=== PATIENT | male | born 1950 | race Caucasian/White ===

== ENCOUNTER 2017-08-23 11:25 | Outpatient (RCR) | payer MEDICARE, BC ==
[2017-07-02 12:09] LABS: PLATELET COUNT, AUTOMATED 74 K/uL (150-450)
[2017-07-06 12:19] LABS: PLATELET COUNT, AUTOMATED 200 K/uL (150-450)
[2017-07-06 12:53] VITALS: BP 105/63
[2017-07-14 13:04] LABS: PLATELET COUNT, AUTOMATED 264 K/uL (150-450)
[2017-07-14 15:45] VITALS: BP 141/80
[2017-07-16 10:37] VITALS: BP 107/69
[2017-07-16 10:41] LABS: PLATELET COUNT, AUTOMATED 182 K/uL (150-450)
[2017-07-19 11:08] VITALS: BP 115/75
[2017-07-19 11:16] LABS: PLATELET COUNT, AUTOMATED 64 K/uL (150-450)
--- NOTE | 2017-07-21 07:24 | ONCOLOGY FOLLOW UP NOTE ---
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 HISTORY OF PRESENT ILLNESS Scott returns. I am sharing his care with Dr. Shaffer, Dr. Keating, Dr. Stewart and Dr. Rojas. He has received all six cycles of R-EPOCH in [place] as an inpatient due to the high risk BCL6 mutation. This is not double hit lymphoma as he does have a c-Myc mutation. Thus I do not believe he requires autologous stem cell transplant if he has complete response as consolidation. He is aware that we would utilize transplant in the future if he relapses. I was very pleased with his interim PET scan, and we are getting an end-of- treatment PET scan in approximately one month. Overall he is tolerating it well including control of the nausea. He does have side effects from the Neulasta, but does have profound myelosuppression from his treatment. He developed some oral ulcers again with this cycle, and I have resumed the acyclovir five times a day with twice daily prophylaxis after that time. We are also resuming Levaquin today for his profoundly low white blood cell count. Overall he is doing well and he is anxious to get his PET scan next month. ONCOLOGY HISTORY 1. Diffuse large B cell lymphoma. a. Initial presentation and summary of 2015 to early 2016 with fatigue and malaise. b. February 11, 2017: Bone marrow biopsy and aspirate was reportedly normal. c. An MRI of the spine is reportedly ordered, showing multiple bony lesions consistent with metastatic disease. d. March 03, 2017, CT PET: Extensive metastatic disease, although primary site was not clearly identified. There was extensive bony metastatic disease in the visualized axial and appendicular skeleton. There was metastatic mediastinal and retroperitoneal lymphadenopathy, as well as extensive hepatic metastatic disease to both lobes of the liver. e. March 03, 2017: Patient undergoes ultrasound-guided biopsy of left liver lesion. Pathology reveals diffuse large B cell lymphoma, germinal center B cell like. Tissue unfortunately was not sufficient for additional testing. Subsequent FISH testing revealed no evidence of 14; 18 translocation, no evidence of 8; 14 translocation, and no evidence of MYC rearrangement or amplification. BCL6 rearrangement warm and dry detected, however. There was no evidence of "double or triple hit" lymphoma. f. March 24, 2017: Lumbar puncture is performed. Pathology revealed benign cerebrospinal fluid. g. March 23, 2017: Patient electively admitted to [facility] to initiate R-EPOCH chemotherapy with intrathecal chemotherapy. PAST MEDICAL HISTORY 1. Diffuse large B cell lymphoma, as above. 2. Osteopenia/osteoporosis. 3. Gastroesophageal reflux disease with Espinal's esophagus. 4. History of basal cell carcinoma of right neck status post excision. 5. History of nephrolithiasis. 6. Reported secondary hypertension. CURRENT MEDICATIONS 1. Vitamin C. 2. Senna p.r.n. 3. Metamucil p.r.n. 4. Compazine p.r.n. 5. Potassium 20 mEq orally daily. 6. Ativan p.r.n. 7. Colace p.r.n. 8. Dexilant 60 mg orally daily. 9. Allopurinol. 10. Acyclovir. 11. Bactrim. 12. Hydrocodone/acetaminophen p.r.n. 13. Fentanyl patch 12 mcg q.3 days. 14. Ibuprofen has been discontinued. 15. Escitalopram 10 mg p.o. daily. 16. Vitamin D3. ALLERGIES Include IODINE CONTRAST. SOCIAL HISTORY The patient is a never smoker. He previously had drank about a can of beer a day, but this has been minimal since initiating treatment. There is no history of illicit drug use. FAMILY HISTORY Includes myocardial infarction and alcohol abuse in his father. Diabetes and hypertension as well as colon cancer in his mother. Hyperlipidemia and hypertension in his sister. Esophageal cancer in his paternal grandfather. Breast cancer in his maternal aunt. REVIEW OF SYSTEMS CONSTITUTIONAL: Positive fatigue due to chemo. No fevers, chills, signs of infection. HEENT: No headache, vision gallstone. CARDIOVASCULAR: No chest pain, dyspnea on exertion, edema, palpitations. RESPIRATORY: No shortness of breath, wheeze, cough. GASTROINTESTINAL: Some nausea, but had not been taking the Compazine. He is now doing this. No hematochezia or melena. He does have occasional cramping. GENITOURINARY: No dysuria or hematuria. ENDOCRINE: No heat or cold intolerance. PSYCHIATRIC: No anxiety or depression. SKIN: No concerning bruising or bleeding. He did have a rash previously, but none currently. MUSCULOSKELETAL: Chronic pain and rib pain related to the Neulasta, but also the lymphoma. HEMATOLOGICAL: No bruising, bleeding. Remainder of review of systems otherwise negative. PHYSICAL EXAMINATION VITAL SIGNS: Blood pressure 113/73, pulse 75, respiratory rate 16, temperature 100 Fahrenheit, but this was using the forehead device and he was wearing a winter hat at the time. Subsequently checked and normal. Oxygen saturation 92 % on room air. Pain 3/10, fatigue 3/10. Weight 70.9 kg. GENERAL: In stable condition, resting comfortably in the chair. CARDIOVASCULAR: Regular rate and rhythm. LUNGS: Clear. HEENT: He has a sore that I see on the posterior mouth and we are increasing his acyclovir. ABDOMEN: Soft, nontender, nondistended. No organomegaly or masses. EXTREMITIES: No clubbing, cyanosis or edema. SKIN: The rash near the port has improved with the moisturizing cream, but now he has the rash on his hands. I would like him to try the moisturizing cream alone as the skin appears quite dry. No other issues on physical exam, and full physical exam deferred to amount of time spent in counseling and coordination of care. IMPRESSION AND PLAN Patient is a pleasant 67-year-old gentleman with the followin. Stage IV diffuse large B cell lymphoma with a BCL6 mutation. He is in the middle of his last cycle six of R-EPOCH. 2. Anxiety related to number one. Provided reassurance today. 3. Myelosuppression due to treatment of number one. We will utilize acyclovir and Levaquin as well as the Neulasta that he received. I answered all of his questions. We will get a PET scan next month and see him at that time in [place]. Billing: Return visit level 5. Total time 45 minutes, counseling time 30. MTDD
[2017-07-23 11:50] VITALS: BP 99/87
[2017-07-23 12:22] LABS: PLATELET COUNT, AUTOMATED 44 K/uL (150-450)
[2017-07-27 11:51] LABS: PLATELET COUNT, AUTOMATED 187 K/uL (150-450)
[2017-07-30 11:34] VITALS: BP 112/68
[2017-07-30 11:47] LABS: PLATELET COUNT, AUTOMATED 280 K/uL (150-450)
[2017-08-03 11:42] LABS: PLATELET COUNT, AUTOMATED 322 K/uL (150-450)
[2017-08-03 12:36] VITALS: BP 112/68
[2017-08-04 14:10] VITALS: BP 96/72
[2017-08-04 15:33] VITALS: BP 107/60
[2017-08-10 11:51] LABS: PLATELET COUNT, AUTOMATED 201 K/uL (150-450)
[2017-08-10 17:11] VITALS: BP 114/70
[~2017-08-23] VITALS: Ht 188 cm; Wt 70.9 kg
[~2017-08-23 11:25] MED LIST: ACYC-50 PO; ALEN70TA2 PO; ALLO-119 PO; ALTEPLASE RECOMB 2 MG VIAL IVP PRN; ASCO-182 PO; ASPI-1471 PO; CHOL100052 PO; DEXL60CA6 PO; DEXTROSE 5%(*) 100 ML BAG 100 ML IVPB PRN; DOCU-416 PO; ESCI10TA8 PO; FENT1PAT40 TD; HEPARIN FLSH (PORT) 500 UN/5ML IVP PRN; IBUP800T37 PO; INFLUENZA VIRUS VAC 0.5 ML SYR IM ONLY ONE; LEVO500T83 PO; LIDOCAINE/SOD BICARB 8.4% SYR ID PRN; LOR5/325 PO; LORA-629 PO; LORA-630 PO; LORA-802 PO; MAGNESIUM SUL* 2 GM/50 ML IVPB 50 ML IVPB ONE; NS(*) 0.9% 100 ML BAG 100 ML IVPB PRN; NS(*) 0.9% 500 ML BAG 500 ML IV PRN; ONDA8TAB98 PO; OXYC-865 PO; PANT40TA65 PO; PEGFILGRASTIM 6 MG/0.6 ML SYR SUBQ ONE; POTA20TA94 PO; PROC10TA95 PO; PSYL3.4P2 PO; SENN8.6T34 PO; SULF-198 PO; TRIA15CR40 TP; VALA500T66 PO; WATER STERILE 10 ML VIAL IVP PRN
[2017-08-23 11:45] VITALS: BP 111/66
--- NOTE | 2017-08-23 13:40 | ONC Progress Note - NP.Halsey ---
Patient History Date of Service Aug 23, 2017 Reason For Visit/HPI Patient is seen in the clinic today for management of possible withdrawal symptoms from previous use of fentanyl patch. Patient has completed 6 cycles of R-EPOCH for high risk diffuse large B-cell lymphoma with BCL 6 mutation approximately 1 month ago. Patient reports that he had a recent PET/CT scan which was unremarkable. Patient feels that he is having no evidence of pain and chooses to stop his fentanyl patch 25 g which he is used since January 2016. Patient reports that he stop the fentanyl patch Wednesday evening and did not sleep much Wednesday night or Wednesday night. He feels faint and jittery, shaking legs, he's had diarrhea 1 episode yesterday however this is resolved today. He feels anxious despite having a very anxious personality. He denies nausea or vomiting. He has not tried to take Ativan or Condon which she has at home. In thorough discussion patient really is afraid to try Ativan due to its property of also be an addicting, however he will try Condon despite not having any pain to help wean off of the narcotics. Patient did get on the Internet and research side effects of withdrawal. He is aware that symptoms can occur but none of them are life threatening however he feels uncomfortable. In addition patient shares that he had a PSA lab draw completed recently which was elevated at 6.4. Previous PSA in November was 1.8. Patient has increased anxiety regarding the acute increase and is following with urology in September. It was explained to him by Dr. Garcia and by myself that this is possible that it's an inflammatory response status post chemotherapy and that a PSA would need to be repeated for better accuracy. Problem List (1) B-cell lymphoma (2) Anxiety (3) Body aches Oncology History 1. Diffuse large B cell lymphoma. a. Initial presentation and summary of 2015 to early 2016 with fatigue and malaise. b. February 11, 2017: Bone marrow biopsy and aspirate was reportedly normal. c. An MRI of the spine is reportedly ordered, showing multiple bony lesions consistent with metastatic disease. d. March 03, 2017, CT PET: Extensive metastatic disease, although primary site was not clearly identified. There was extensive bony metastatic disease in the visualized axial and appendicular skeleton. There was metastatic mediastinal and retroperitoneal lymphadenopathy, as well as extensive hepatic metastatic disease to both lobes of the liver. e. March 03, 2017: Patient undergoes ultrasound-guided biopsy of left liver lesion. Pathology reveals diffuse large B cell lymphoma, germinal center B cell like. Tissue unfortunately was not sufficient for additional testing. Subsequent FISH testing revealed no evidence of 14; 18 translocation, no evidence of 8; 14 translocation, and no evidence of MYC rearrangement or amplification. BCL6 rearrangement warm and dry detected, however. There was no evidence of "double or triple hit" lymphoma. f. March 24, 2017: Lumbar puncture is performed. Pathology revealed benign cerebrospinal fluid. g. March 23, 2017: Patient electively admitted to [facility] to initiate R-EPOCH chemotherapy with intrathecal chemotherapy. h. Completion of 6 cycles of chemotherapy on 2016. Patient reports PET/ CT scan one month out from treatment showed no evidence of disease i. 08/22/2017 patient is discontinuing fentanyl 25 g patch and reports withdrawal symptoms. Medical History Family History: FH: HI (myocardial infarction) FATHER, , Age:68 FH: dementia MOTHER, , Age:73 FH: diabetes mellitus MOTHER, , Age:73 FH: glaucoma MOTHER, , Age:73 FH: hypertension BROTHER OR SISTER Psychosocial History Social History The patient is a never smoker. He previously had drank about a can of beer a day, but this has been minimal since initiating treatment. There is no history of illicit drug use. Smoking History: No Smoking Status: Never Smoker Medications and Allergies Active Scripts Levofloxacin 500 Mg Tab (LEVOFLOXACIN 500 MG TAB) 500 Mg Tablet, 500 MG PO DAILY , #7 TAB 1 Refill Prov:JESIKA DONIS MD 07/19/17 Acyclovir (ACYCLOVIR) 400 Mg Tablet, 400 MG PO BID, #90 TAB Take 5 times a day for 1 week, then 2 times daily for 3 weeks, then stop. Prov:JESIKA DONIS MD 07/19/17 Valacyclovir Hcl (VALTREX) 500 Mg Tablet, 500 MG PO BID, #14 TAB 0 Refills Prov:JESIKA DONIS MD 06/28/17 Triamcinolone Acetonide 0.1% Cr 15 Gm Tube (TRIAMCINOLONE ACETONIDE 0.1% CREAM) 15 Gm Cream..g., 1 CARO TP DAILY for rash, #1 TUBE 1 Refill Apply to affected rash. Use sparingly on face. Prov:JESIKA DONIS MD 05/19/17 Escitalopram Oxalate (ESCITALOPRAM OXALATE) 10 Mg Tablet, 10 MG PO QDAY, #90 TAB 4 Refills Prov:RASHI WELLS MD 05/05/17 Reported Medications Loratadine (LORATADINE) 10 Mg Tablet, 10 MG PO DAILY 06/07/17 Ascorbic Acid (VITAMIN C) 500 Mg Tablet, 500 MG PO QDAY, TAB 04/25/17 Sennosides (SENNA) 8.6 Mg Tablet, 8.6 MG PO BID 04/25/17 Psyllium Husk/Aspartame (METAMUCIL FIBER SINGLES PACKET) 3.4 Gm Powd.pack, 3.4 GM PO QDAY 04/25/17 Prochlorperazine Maleate (PROCHLORPERAZINE MALEATE) 10 Mg Tablet, 10 MG PO Q8H Y for NAUSEA, TAB 04/25/17 Potassium Chloride (POTASSIUM CHLORIDE) 20 Meq Tab.er.prt, 20 MEQ PO QDAY 04/25/17 Lorazepam (LORAZEPAM) 0.5 Mg Tablet, 0.5-1 MG PO Q6H 04/25/17 Docusate Sodium (COLACE) 100 Mg Capsule, 100 MG PO BID, CAPSULE 04/25/17 Dexlansoprazole (DEXILANT) 60 Mg Cap.mp, 60 MG PO QDAY 04/25/17 Sulfamethoxazole/Trimet 800-160 Mg Tab (BACTRIM DS TABLET) 1 Each Tablet, 160 MG PO TID, TAB 04/25/17 Hydrocodone Bit/Acetaminophen (HYDROCODON-ACETAMINOPHEN 5-325) 1 Each Tablet, 1- 2 EACH PO Q4-6H, TAB 04/25/17 Cholecalciferol (Vitamin D3) (VITAMIN D) 1,000 Unit Tablet, 1 TAB PO QDAY 11/18/16 Discontinued Scripts Fentanyl (Fentanyl) 1 Each Patch.td72, 25 MCG TD Q72H for PAIN for 30 Days, #10 MCG Prov:[employer] [employer] DIRECTOR-BC, ONC 07/26/17 Allergies: Uncoded Allergies: iodine contrast (Allergy, Mild, RASH AT IV SITE, 02/10/17) Review of System/Physical Exam Review of Systems All Systems Reviewed/Normal: Yes, Except as Noted Gastrointestinal: Diarrhea (yesterday this is resolved today) Hematologic: Positive for Fatigue Musculoskeletal: Positive for Other (shaking of the legs) Neurologic: Other (feeling jittery and increased anxiety) Psychiatric: Anxiety (acutely increased over the last day) Physical Exam Vital Signs Temperature: 98.6 Pulse: 66 BP Systolic: 111 BP Diastolic: 66 Respiratory Rate: 16 O2 SAT: 92 O2 Delivery: Height (inches) 74.00 Weight lb: 165 Weight oz: Weight Kg (Gabo): Pain: 0 ECOG Score: 1 General: Stable, Well Developed, Well Nourished, Not In Acute Distress Psychiatric: Mood appears normal (patient appears to have a anxious personality and reports that he is feeling more anxious than usual) Diagnostic Studies Diagnostic Studies Laboratory Laboratory Tests 08/10/17 11:45 Laboratory Tests 07/06/17 12:05: Promyelocytes % 0, Blast Cells % 0 07/19/17 10:50: Polychromasia 1+, Hypochromasia 2+, Microcytosis 1+, Tear Drop Cells 2+, Helmet Cells 2+, [place] Cells 2+ 07/23/17 11:40: Anisocytosis 1+, Macrocytosis 1+ 07/27/17 11:30: Metamyelocytes % 1, Myelocytes % 1 07/30/17 11:38: Peripheral Blood Smear No 08/03/17 11:36: Neutrophils (%) (Auto) 77.3, Lymphocytes (%) (Auto) 7.0, Monocytes (%) (Auto) 14.6, Eosinophils (%) (Auto) 0.1, Basophils (%) (Auto) 1.0, Nucleated RBC Relative Count (auto) 0.0, Neutrophils # (Auto) 3.5, Lymphocytes # (Auto) 0.3, Monocytes # (Auto) 0.7, Eosinophils # (Auto) 0.0, Basophils # (Auto) 0.0, Nucleated RBC Absolute Count (auto) 0.00 08/10/17 11:45: White Blood Count 5.1, Red Blood Count 3.26, Hemoglobin 11.0, Hematocrit 32.5, Mean Corpuscular Volume 99.7, Mean Corpuscular Hemoglobin 33.8, Mean Corpuscular Hemoglobin Concent 33.9, Red Cell Distribution Width 16.1, Platelet Count 201, Mean Platelet Volume 9.1, Neutrophils % (Manual) 78, Band Neutrophils % 1, Lymphocytes % (Manual) 8, Atypical Lymphocytes % 2, Monocytes % (Manual) 11, Eosinophils % (Manual) 0, Basophils % (Manual) 0, Sodium Level 141, Potassium Level 4.2, Chloride Level 108, Carbon Dioxide Level 25, Blood Urea Nitrogen 13, Creatinine 0.60, Glomerular Filtration Rate Calc > 60.0, Random Glucose 101, Calcium Level 8.6, Magnesium Level 1.6, Total Bilirubin 0.7 , Aspartate Amino Transf (AST/SGOT) 29, Alanine Aminotransferase (ALT/SGPT) 32, Alkaline Phosphatase 66, Total Protein 6.0, Albumin 3.4 Assessment and Plan Assessment & Plan Patient is a pleasant 67-year-old gentleman with the followin. Stage IV diffuse large B cell lymphoma with a BCL6 mutation. He has completed six of R-EPOCH. PET/CT scan one month post completion is reported to be without evidence of disease. He will follow with Dr. Garcia as previously scheduled. 2. Anxiety related diagnosis of diffuse large B-cell lymphoma, elevated PSA of 6.4 from previous 1.8 in November, and discontinuing fentanyl patch. 3. Myelosuppression due to treatment of number. Patient has recovered, we'll continue to monitor 4. Discontinuing fentanyl patch and experiencing side effects such as not able to sleep, increased anxiety, jitteriness and diarrhea yesterday. Patient is without any evidence of pain. He has lorazepam at home which he refuses to use because it is also addicting. He also has Condon at home. We discussed trying to taper off of the fentanyl using a 12 g patches for a week and then discontinuing. Patient does not want to do so. We also discussed the use of Condon at night prior to bed for 3 or 4 days at 5/325 mg dose and then cutting it in half for 3 or 4 days and see how patient does this would allow a taper off of the narcotics. Patient is willing to do this and will call the clinic if it is not working. In addition I have suggested the use of melatonin to use in the future which is not habit-forming. He agrees to this plan of care. 5. Elevated PSA level. In November PSA was 1.8 and currently PSA is 6.4. This is thought to be related to inflammation post chemotherapy rather than prostate cancer. Patient has been referred to urology and has an appointment in September. We did discuss repeating a PSA level to rule out lab error and for better evaluation. Patient is agreeing to this and will discuss this with urology. I personally spent a total of 20 minutes [id number] with patient reviewing medications and plan of care. Physical exam was deferred today to allow conversation. See my note above for details. [employer] DIRECTOR-BC, ONC Aug 23, 2017 13:40
[2017-08-24] MEDS ORDERED: LOR5/325 PO (13:30)
== END 2017-09-30 ==
LOC: ONC 11:25
PROVIDERS: ATTEND Internal Medicine
DX: Z85.72 Personal history of non-Hodgkin lymphomas (principal); R70.0 Elevated erythrocyte sedimentation rate; Z79.899 Other long term (current) drug therapy; Z23 Encounter for immunization; R97.20 Elevated prostate specific antigen [PSA]; Z92.21 Personal history of antineoplastic chemotherapy; F41.9 Anxiety disorder, unspecified
CPT/HCPCS: 36415; 83735; 85007; 85025; 85027; 96365; 96372; G0008; G0463; J2505; J3475; Q2037; 82040; 82247; 82310; 82374; 82435; 82565; 82947; 84075; 84132; 84155; 84295; 84450; 84460; 84520; 90674; 99212

== ENCOUNTER 2017-10-25 08:00 | Outpatient (RCR) | payer MEDICARE, BC ==
[~2017-10-25] VITALS: Ht 188 cm; Wt 76.1 kg
[~2017-10-25 08:00] MED LIST changes: -ALTEPLASE RECOMB 2 MG VIAL IVP PRN; -DEXTROSE 5%(*) 100 ML BAG 100 ML IVPB PRN; -HEPARIN FLSH (PORT) 500 UN/5ML IVP PRN; -INFLUENZA VIRUS VAC 0.5 ML SYR IM ONLY ONE; -LIDOCAINE/SOD BICARB 8.4% SYR ID PRN; -MAGNESIUM SUL* 2 GM/50 ML IVPB 50 ML IVPB ONE; -NS(*) 0.9% 100 ML BAG 100 ML IVPB PRN; -NS(*) 0.9% 500 ML BAG 500 ML IV PRN; -PEGFILGRASTIM 6 MG/0.6 ML SYR SUBQ ONE; +PROC-5 PO; -PROC10TA95 PO; -WATER STERILE 10 ML VIAL IVP PRN
[2017-10-25 08:16] VITALS: BP 138/77
[2017-10-25 09:35] LABS: PLATELET COUNT, AUTOMATED 126 K/uL (150-450)
--- NOTE | 2017-10-26 17:43 | ONCOLOGY FOLLOW UP NOTE ---
EVENT DATE: October 25, 2017 CHIEF COMPLAINT/REASON FOR VISIT Mr. Justin is a pleasant 67-year-old gentleman in survivorship for diffuse large B cell lymphoma with high risk features including a BCL6 mutation, status post six cycles of dose adjusted R-EPOCH. HISTORY OF PRESENT ILLNESS Scott returns. He received all six cycles of R-EPOCH in [place] as an inpatient due to the high risk BCL6 mutation. Of note, this is not a double hit lymphoma as he does not have c-Myc mutation. Thus I do not believe he requires autologous stem cell transplant at this time. We utilized the more aggressive regimen after extensive discussion regarding the data of R-CHOP versus R-EPOCH. He had his PET scan in August 2017 at the end of treatment which showed no evidence of lymphoma. There was a concern with the prostate, but it turned out to be prostatitis, as his PSA went up to 6, but then back down to its baseline of 1.1. He has no symptoms there. We are currently following him every six months. We had an extensive conservation about survivorship and anxiety. Scott continues to have high anxiety. I think this is evident with multiple symptoms. I also believe he is having recovery of his testosterone and many symptoms including breast tenderness, mild night sweats, fatigue with this recovery. He is also having recovery in the GI tract with some mucousy diarrhea at times. [ ONCOLOGY HISTORY 1. Diffuse large B cell lymphoma. a. Initial presentation and summary of 2015 to early 2016 with fatigue and malaise. b. February 11, 2017: Bone marrow biopsy and aspirate was reportedly normal. c. An MRI of the spine is reportedly ordered, showing multiple bony lesions consistent with metastatic disease. d. March 03, 2017, CT PET: Extensive metastatic disease, although primary site was not clearly identified. There was extensive bony metastatic disease in the visualized axial and appendicular skeleton. There was metastatic mediastinal and retroperitoneal lymphadenopathy, as well as extensive hepatic metastatic disease to both lobes of the liver. e. March 03, 2017: Patient undergoes ultrasound-guided biopsy of left liver lesion. Pathology reveals diffuse large B cell lymphoma, germinal center B cell like. Tissue unfortunately was not sufficient for additional testing. Subsequent FISH testing revealed no evidence of 14; 18 translocation, no evidence of 8; 14 translocation, and no evidence of MYC rearrangement or amplification. BCL6 rearrangement warm and dry detected, however. There was no evidence of "double or triple hit" lymphoma. f. March 24, 2017: Lumbar puncture is performed. Pathology revealed benign cerebrospinal fluid. g. March 23, 2017: Patient electively admitted to [facility] to initiate R-EPOCH chemotherapy with intrathecal chemotherapy. PAST MEDICAL HISTORY 1. Diffuse large B cell lymphoma. 2. Osteopenia/osteoporosis. 3. GERD with Espinal's esophagus. 4. History of basal cell carcinoma of right neck status post excision. 5. History of nephrolithiasis. 6. History of hypertension. CURRENT MEDICATIONS 1. Vitamin C. 2. Senna p.r.n. 3. Metamucil p.r.n. 4. Compazine p.r.n. 5. Potassium 20 mEq orally daily. 6. Ativan p.r.n. 7. Colace p.r.n. 8. Dexilant 60 mg orally daily. 9. Allopurinol. 10. Acyclovir. 11. Bactrim. 12. Hydrocodone/acetaminophen p.r.n. 13. Fentanyl patch 12 mcg q.3 days. 14. Ibuprofen has been discontinued. 15. Escitalopram 10 mg p.o. daily. 16. Vitamin D3. ALLERGIES IODINE. SOCIAL HISTORY Never smoker. Minimal alcohol use. No drug use. FAMILY HISTORY Includes myocardial infarction and alcohol abuse in his father. There is diabetes, colon cancer and hypertension in his mother. Hyperlipidemia and hypertension with his sister. Esophageal cancer with the paternal grandfather. Breast cancer in a maternal aunt. REVIEW OF SYSTEMS CONSTITUTIONAL: Fatigue is recovering. No fever, chills, signs of infection. Occasional mild night sweats, nothing like his prior night sweats. HEENT: No headache, vision changes. CARDIOVASCULAR: No chest pain, dyspnea on exertion, edema. RESPIRATORY: No shortness of breath, wheeze, cough. GASTROINTESTINAL: No nausea, vomiting, diarrhea, constipation. He does have some mucus in the stool at times. GENITOURINARY: No dysuria or hematuria. ENDOCRINE: No heat or cold intolerance. PSYCHIATRIC: No anxiety or depression. SKIN: No concerning bruising or bleeding. LYMPHATIC: No concerning lumps or bumps. MUSCULOSKELETAL: Chronic pain and muscle tension due to anxiety. PHYSICAL EXAMINATION VITAL SIGNS: Blood pressure 138/77, pulse 82, respiratory rate 16, temperature 96.9 Fahrenheit. Oxygen saturation 91% on room air. Weight 71.6 kg. Pain 0/10 , fatigue 0/10. GENERAL: In stable condition, resting comfortably in the chair. HEENT: Normocephalic, atraumatic. MUSCULOSKELETAL: He has tension in his neck and shoulders. LYMPHATIC: No concerning cervical, supraclavicular, axillary or inguinal adenopathy. CARDIOVASCULAR: Regular rate and rhythm. Normal S1, S2. LUNGS: Clear to auscultation bilaterally. ABDOMEN: Soft, nontender. No organomegaly or masses. SKIN: No concerning lesions. He does have some seborrhea versus an early precancerous lesion on the left forehead. Remainder of the physical exam unremarkable. . IMPRESSION AND PLAN Mr. Justin is a pleasant 67-year-old gentleman with the followin. Stage IV aggressive diffuse large B cell lymphoma with a BCL6 mutation. He finished six cycles of R-EPOCH in July 2017. 2. 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 Provided reassurance today. 3. Suspected low testosterone. Will check the levels today. 4. Recent mild prostatitis, resolved. Will check with future scans again. 5. Myelosuppression. Continue the acyclovir until his lymphocyte count recovers. 6. History of hypokalemia. Continue the potassium until this recovers. I answered all of their many questions today. Return in approximately three months with repeat labs, repeat imaging in six months. Billing: Return visit level 5. Total time 45 minutes, counseling time 30. High risk, high complexity. MTDD
== END 2018-01-20 ==
LOC: ONC 08:00
PROVIDERS: ATTEND Internal Medicine
DX: Z85.72 Personal history of non-Hodgkin lymphomas (principal); F41.9 Anxiety disorder, unspecified; Z92.21 Personal history of antineoplastic chemotherapy
CPT/HCPCS: 83615; 84270; 84403; 84443; 85025; G0463; 82040; 82247; 82310; 82374; 82435; 82565; 82947; 84075; 84132; 84155; 84295; 84450; 84460; 84520; 99212

== ENCOUNTER 2018-03-22 13:30 | Outpatient (RCR) | payer MEDICARE, BC ==
[2018-01-21 11:17] LABS: PLATELET COUNT, AUTOMATED 139 K/uL (150-450)
[2018-01-24 14:08] VITALS: BP 103/59
--- NOTE | 2018-01-25 19:08 | ONCOLOGY FOLLOW UP NOTE ---
EVENT DATE: January 24, 2018 CHIEF COMPLAINT/REASON FOR VISIT Mr. 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 HISTORY OF PRESENT ILLNESS Scott mann. He received all six cycles of R-EPOCH in [place] as an inpatient due to the high risk BCL6 mutation. Of note, this is not a double hit lymphoma as he does not have c-Myc mutation. Thus I do not believe he requires autologous stem cell transplant in first remission. We utilized a more aggressive regimen after extensive discussion regarding the data between R- CHOP versus R-EPOCH. He had a PET scan in August 2017 at the end of treatment which showed no evidence of lymphoma. He has a high risk of relapse and I would like to get another PET scan now. I believe he had prostatitis with the last PET scan and we need to follow up with this as well. This is another reason to get the PET scan. We had another extensive conversation regarding survivorship and anxiety. Fortunately his anxiety is starting to improve. He does become anxious when he develops any symptom including mild symptoms like GI issues and right shoulder pain recently that make him think he may have recurrence of his disease. His GI recovery has been going somewhat slower than usual with some atypical stools and mucousy diarrhea. Given his anxiety I am concerned for the possibility of IBS. ONCOLOGY HISTORY 1. Diffuse large B cell lymphoma. a. Initial presentation and summary of 2015 to early 2016 with fatigue and malaise. b. February 11, 2017: Bone marrow biopsy and aspirate was reportedly normal. c. An MRI of the spine is reportedly ordered, showing multiple bony lesions consistent with metastatic disease. d. March 03, 2017, CT PET: Extensive metastatic disease, although primary site was not clearly identified. There was extensive bony metastatic disease in the visualized axial and appendicular skeleton. There was metastatic mediastinal and retroperitoneal lymphadenopathy, as well as extensive hepatic metastatic disease to both lobes of the liver. e. March 03, 2017: Patient undergoes ultrasound-guided biopsy of left liver lesion. Pathology reveals diffuse large B cell lymphoma, germinal center B cell like. Tissue unfortunately was not sufficient for additional testing. Subsequent FISH testing revealed no evidence of 14; 18 translocation, no evidence of 8; 14 translocation, and no evidence of MYC rearrangement or amplification. BCL6 rearrangement warm and dry detected, however. There was no evidence of "double or triple hit" lymphoma. f. March 24, 2017: Lumbar puncture is performed. Pathology revealed benign cerebrospinal fluid. g. March 23, 2017: Patient electively admitted to [facility] to initiate R-EPOCH chemotherapy with intrathecal chemotherapy. PAST MEDICAL HISTORY 1. Diffuse large B cell lymphoma. 2. Osteopenia/osteoporosis. 3. GERD with Espinal's esophagus. 4. History of basal cell carcinoma of right neck status post excision. 5. History of nephrolithiasis. 6. History of hypertension. ALLERGIES IODINE. SOCIAL HISTORY Never smoker. Minimal alcohol use. No drug use. FAMILY HISTORY Includes myocardial infarction and alcohol abuse in his father. There is diabetes, colon cancer and hypertension in his mother. Hyperlipidemia and hypertension with his sister. Esophageal cancer with the paternal grandfather. Breast cancer in a maternal aunt. REVIEW OF SYSTEMS CONSTITUTIONAL: No fever, chills, significant weight change. HEENT: No headache, vision changes. CARDIOVASCULAR: No chest pain, dyspnea on exertion, edema. RESPIRATORY: No shortness of breath, wheeze, cough. GASTROINTESTINAL: No nausea, vomiting. MUSCULOSKELETAL: No weakness or joint pain. PSYCHIATRIC: No anxiety or depression currently. He does have a history with anxiety in general. ENDOCRINE: No heat or cold intolerance. HEMATOLOGIC/LYMPHATIC: No bruising, bleeding. No concerning lumps or bumps. Remainder of the 14-point review of systems otherwise negative. PHYSICAL EXAMINATION VITAL SIGNS: Blood pressure 103/59, pulse 58, respiratory rate 16, temperature 96.4 Fahrenheit. Oxygen saturation 92% on room air. Weight 78.7 kg. Pain 0/10 , fatigue 0/10. GENERAL: In stable condition, resting comfortably in the chair. HEENT: Normocephalic, atraumatic. CARDIOVASCULAR: Regular rate and rhythm. LUNGS: Clear. ABDOMEN: Soft, nontender. No organomegaly or masses. LYMPHATIC: No appreciable cervical, supraclavicular or axillary adenopathy with an extensive exam. EXTREMITIES: No clubbing, cyanosis or edema. SKIN: No concerning rash. Remainder of physical exam otherwise unremarkable. IMPRESSION AND PLAN Mr. Justin is a very pleasant 68-year-old gentleman with the followin. Stage IV aggressive diffuse large B cell lymphoma with a BCL6 mutation. He finished six cycles of R-EPOCH in approximately July 2017. 2. 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 Reassurance provided today. This is improving. 3. Borderline testosterone level. This may need to be adjusted in the future, but given his recent elevated PSA and prostatitis, I would avoid replacement at this time. 4. Recent prostatitis. Currently resolved. We will check again on a future PET scan and he is due for a PET scan now. His PSA did rise and we need to rule down the development of prostate cancer. 5. Myelosuppression. His lymphocyte count is still suppressed at 0.5 and I would like to continue the acyclovir. I answered all of their many questions today. Reviewed his history in detail. Would like to see him in approximately two months with repeat labs and the PET scan. Billing: Return visit level 5. Total time 45 minutes, counseling time 30. MTDD
[2018-02-24 11:00] VITALS: BP 102/63
[2018-02-24 11:25] LABS: PLATELET COUNT, AUTOMATED 132 K/uL (150-450)
[2018-03-22 13:35] VITALS: BP 115/73
[2018-03-22 14:39] LABS: PLATELET COUNT, AUTOMATED 141 K/uL (150-450)
--- NOTE | 2018-03-23 15:59 | ONCOLOGY FOLLOW UP NOTE ---
EVENT DATE: March 22, 2018 CHIEF COMPLAINT/REASON FOR VISIT Mr. Justin is a very pleasant survivor of diffuse large B-cell lymphoma, including a high-risk BCL 6 mutation, status post six cycles of dosage-adjusted R-EPOCH. HISTORY OF PRESENT ILLNESS Scott mann. He received all six cycles of R-EPOCH in [place] as an inpatient due to the high-risk BCL6 mutation. Of note, he did not have a double -hit lymphoma as he did not have the c-Myc mutation. Thus, I do not believe he requires autologous stem cell transplant in the first remission. We utilized a more aggressive regimen after extensive discussion about the data between R- CHOP versus R-EPOCH. His PET scan in August 2017 at the end of the treatment showed no evidence of lymphoma. We had some prostatitis on the last scan, and we followed up with a repeat PET scan this summer which showed no evidence of disease. There were benign findings. I do believe he has some mild gynecomastia related to low testosterone, which was present before treatment and then worsened with treatment. He is not interested in replacement at this time, and we discussed the pros and cons of treatment in the future. He does note some erectile dysfunction which is likely related to this as well. I believe that his anxiety is still present, but much improved. He is working on getting back to exercise. No other new issues today. ONCOLOGY HISTORY (Please cut and paste from my note from January 24, 2018.) PAST MEDICAL HISTORY (Please cut and paste from my note from January 24, 2018.) ALLERGY LIST (Please cut and paste from my note from January 24, 2018.) SOCIAL HISTORY (Please cut and paste from my note from January 24, 2018.) FAMILY HISTORY (Please cut and paste from my note from January 24, 2018.) REVIEW OF SYSTEMS (Please cut and paste from my note from January 24, 2018.) PHYSICAL EXAMINATION VITAL SIGNS: Blood pressure 115/73, pulse is 58, respiratory rate is 16, temperature 96.3 Fahrenheit, oxygen saturation 92% on room air. Weight 77.5 kg. PAIN: Zero/10 FATIGUE: Zero/10 FALL RISK: Low GENERAL: Stable condition, resting comfortably in the chair. HEENT: Normocephalic, atraumatic. CARDIOVASCULAR: Regular rate and rhythm. LUNGS: Clear to auscultation bilaterally. ABDOMEN: Soft, nontender. No organomegaly or masses. LYMPHATIC: No appreciable cervical, supraclavicular, or axillary adenopathy. SKIN: No concerning lesions. Remainder of physical exam otherwise unremarkable today. IMPRESSION (Import.) PLAN Mr. Justin is a pleasant, 68-year-old gentleman with the followin. Stage IV aggressive, diffuse large B-cell lymphoma with BCL6 mutation. He finished six cycles of R-EPOCH in approximately July 2017. 2. Anxiety and survivorship overall improved. 3. Borderline testosterone level. Given the recent elevated PSA and prostatitis, there are risks with replacing this, and he would like to avoid it. 4. Myelosuppression. His lymphocyte count was suppressed in January at 0.5, and we are repeating it today. If the counts have gone up any further, we can discontinue the acyclovir. I answered all of his questions today. Billing Return visit level 4. Total time 30 minutes, counseling time 20. MTDD
== END 2018-04-21 ==
LOC: ONC 13:30
PROVIDERS: ATTEND Internal Medicine
DX: R70.0 Elevated erythrocyte sedimentation rate (principal); C83.30 Diffuse large B-cell lymphoma, unspecified site; Z92.21 Personal history of antineoplastic chemotherapy
CPT/HCPCS: 36415; 82784; 83615; 85025; G0463; 82040; 82247; 82310; 82374; 82435; 82565; 82947; 84075; 84132; 84155; 84295; 84450; 84460; 84520; 99212

== ENCOUNTER 2018-06-22 06:55 | Outpatient (RCR) | payer MEDICARE, BC ==
[2018-06-22 10:01] VITALS: BP 119/64
[2018-06-22 10:23] LABS: PLATELET COUNT, AUTOMATED 155 K/uL (150-450)
== END 2018-07-13 09:05 | disposition home or self-care (01) ==
LOC: ONC 06:55
PROVIDERS: ATTEND Internal Medicine
DX: C83.39 Diffuse large B-cell lymphoma, extranodal and solid organ sites (principal)
CPT/HCPCS: 36415; 82040; 82247; 82310; 82374; 82435; 82565; 82784; 82947; 83615; 84075; 84132; 84155; 84295; 84450; 84460; 84520; 85025

== ENCOUNTER → 2018-08-02 | Outpatient (CLI) | payer MEDICARE, BC ==
[~2018-08-02] MED LIST changes: -SENN8.6T34 PO; +SENN8.6T35 PO
[2018-08-02 09:13] LABS: PLATELET COUNT, AUTOMATED 153 K/uL (150-450)
[2018-08-02 09:50] LABS: LDL CHOLESTEROL 103 mg/dl
== END ==
LOC: LAB 08:50
PROVIDERS: ATTEND Internal Medicine
DX: Z00.00 Encounter for general adult medical examination without abnormal findings (principal); C85.10 Unspecified B-cell lymphoma, unspecified site; R53.83 Other fatigue; C79.9 Secondary malignant neoplasm of unspecified site; E78.00 Pure hypercholesterolemia, unspecified; E16.2 Hypoglycemia, unspecified
CPT/HCPCS: 36415; 82040; 82247; 82310; 82374; 82435; 82465; 82565; 82947; 83718; 84075; 84132; 84155; 84295; 84443; 84450; 84460; 84478; 84520; 85025

== ENCOUNTER → 2018-08-15 | Outpatient (CLI) | payer MEDICARE, BC ==
[~2018-08-15] MED LIST changes: +FLU180SY11 IM; +PNEU0.5D3 IM
--- NOTE | 2018-08-15 14:02 | RADIOLOGY IMAGING REPORT ---
FACILITY: [facility] [place] PATIENT NAME: Noe Justin : 1950 MR: [id number] V: [id number] EXAM DATE: ORDERING PHYSICIAN: RASHI WELLS TECHNOLOGIST: Location: [facility] [place] Patient: Noe Justin : 1950 Visit/Account:[id number] Date of Sevice: 08/15/2018 DEXA Scan Clinical history: Osteoporosis, history of lymphoma. Comparison: DEXA scan from 01/04/2007. LUMBAR SPINE: The bone mineral density (BMD) measured from L1-L4 correlates with a Z-score of -0.8 and a T-score of -1.3 which is osteopenia as defined by the World Health Organization. The corresponding risk of fra cture in the lumbar spine is 2-3 times increased compared with a young adult reference population. T his value has increased by 6.9 % since the prior study. More than 5% change is considered significan t. HIP: Bone mineral density (BMD) measured in the LEFT total hip region correlates with a Z-score -1.1 and a T-score of -1.7 which is osteopenia as defined by the World Health Organization. The corresponding risk of fracture in the hip is 3-4 times increased compared to a young adult reference population. Th is value has decrease by 2.2 % since the prior study. More than 5% change is considered significant. T score left femoral neck -1.3 Bone mineral density (BMD) measured in the Femoral Neck region measures 0.897 g/cm?. IMPRESSION: 1. Lumbar spine: Osteopenia. There has been 6.9% increase in the bone mineral density since the pre vious exam. 2. Left Total Hip: Osteopenia. There has been 2.2% decrease in the bone mineral density since the p revious exam. 3. Femoral Neck: Bone Mineral Density is 0.897 g/cm? The next DEXA scan of this patient should include the following sites: L1-L4 and the left hip. FRAX? WHO Fracture Risk Assessment Tool link: <http://www.shef.ac.uk/FRAX/tool.jsp?locationValue=9> PLEASE NOTE: 1) The World Health Organization defines low BMD as follows: T-score Normal > -1 Osteopenia < -1 and > -2.5 Osteoporosis < -2.5 without fractures Established osteoporosis < -2.5 with fractures 2) In general, you may wish to consider: Diagnosis Treatment Follow-up DEXA Normal BMD Prevention 2-3 years Osteopenia Prevention/therapy 1-2 years Osteoporosis Therapy Yearly 3) Fracture risk estimated from the T-score is more accurate for vertebral fractures (often spontane ous) than for hip fractures. Report Dictated By: Radha Sinclair MD at 08/15/2018 1:55 PM Report E-Signed By: Radha Sinclair MD at 08/15/2018 1:57 PM WSN:[email or web address]
== END ==
LOC: RAD 07:01
PROVIDERS: ATTEND Internal Medicine
DX: M85.80 Other specified disorders of bone density and structure, unspecified site (principal)
CPT/HCPCS: 77080

== ENCOUNTER 2018-09-19 11:22 | Outpatient (RCR) | payer MEDICARE, BC ==
[2018-09-14 09:19] LABS: PLATELET COUNT, AUTOMATED 138 K/uL (150-450)
[2018-09-14 09:23] VITALS: BP 123/74
--- NOTE | 2018-09-14 13:59 | RADIOLOGY IMAGING REPORT ---
FACILITY: [facility] [place] PATIENT NAME: Noe Justin : 1950 MR: [id number] V: [id number] EXAM DATE: ORDERING PHYSICIAN: JESIKA DONIS TECHNOLOGIST: Location: [facility] Patient: Noe Justin : 1950 Visit/Account:[id number] Date of Sevice: 09/14/2018 CHEST/AB/PELV W/WO CONTRAST HISTORY: Lymphoma, six month follow-up ADDITIONAL HISTORY: None. TECHNIQUE: Pre and post administration of IV contrast axial images acquired through the chest abdome n and pelvis during the portal venous phase. Coronal and sagittal reformatting was also performed.Do se Lowering Technique One of the following dose optimization techniques was utilized in the performance of this exam: Autom ated exposure control; adjustment of the mA and/or kV according to the patient's size; or use of an i terative reconstruction technique. Specific details can be referenced in the facility's radiology C T exam operational policy. CONTRAST: 75 mL Isovue-370 COMPARISON: PET/CT February 22, 2018 FINDINGS: CHEST: Lungs/Pleura: There is mild right apical pleural parenchymal scarring that appears similar when comp ared to the prior study Mediastinum/lymph nodes: Negative. Heart/vessels: Advanced coronary artery calcifications Bones/soft tissues: There are mixed lytic and sclerotic lesions seen throughout the visualized lower cervical spine and thoracic spine in a similar pattern to the prior PET/CT of February 22, 2018. These may represent healed metastases as these areas were not FDG avid on the prior study. There is increased soft tissue density material in the left retroareolar breast relative to the right . This appears similar to the prior study and may represent unilateral gynecomastia. Focal correlat ion needed ABDOMEN AND PELVIS: Hepatobiliary: There is a tiny 4 mm hypoattenuating focus along the posterior dome of the liver best seen on image 96 of series 7 which is too small to characterize Spleen: Negative. Pancreas: Negative. Adrenals: Negative. Kidneys ureters and bladder : Bilateral renal cysts and bilateral nonobstructing nephrolithiasis agai n seen Genitalia: Seminal vesicles are lobular and very prominent although appears similar to the prior stud y. Coarse calcifications are seen within the inhomogeneous prostate. There are prominent serpiginou s vessels in the inguinal regions extending to the scrotal sac bilaterally which could represent vari coceles GI: There is a focal narrowing in the ascending colon best seen on coronal image 45 of series 10 an d axial image 158 of series 7. This could represent an area of peristalsis although an annular lesio n cannot be totally excluded.. 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 There is a high- grade narrowing in the right internal iliac artery Bones/soft tissues: Mixed lytic and sclerotic lesions are seen throughout the lumbosacral spine and pelvis in a similar pattern to the prior PET/CT. This may represent healed metastases as these areas were not FDG avid on the prior study Additional findings: None pertinent. IMPRESSION: There are mixed lytic and sclerotic lesions throughout the visualized bones as described that appears similar to the prior PET/CT from February 22, 2018. These may represent healed metastases as these area s were not FDG avid on the most recent PET/CT. Increased soft tissue density material is seen in the left retroareolar breast possibly reflecting un ilateral gynecomastia as this appears similar to the prior study although clinical correlation needed Tiny 4 mm hypoattenuating focus along the posterior dome of the liver is too small to characterize Nonobstructing bilateral nephrolithiasis in bilateral renal cysts. There is focal narrowing in the ascending colon as described above which could are present a focal ar ea of peristalsis although an annular lesion not totally ex luded. 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
[~2018-09-19 11:22] MED LIST changes: -ALEN70TA2 PO; +ALEN70TA46 PO; +IOPAMIDOL 76% 75 ML INFUS BTL 75 ML ONE
[2018-09-19 11:57] VITALS: BP 124/62
--- NOTE | 2018-09-20 04:54 | [facility] ONCOLOGY NOTE ---
EVENT DATE: September 19, 2018 CHIEF COMPLAINT/REASON FOR VISIT Mr. Justin is a pleasant 68-year-old gentleman and survivor of diffuse large B- cell lymphoma, including high-risk BCL6 mutation, status post six cycles of dose-adjusted R-EPOCH, here for followup. HISTORY OF PRESENT ILLNESS Scott returns. He received all six cycles of R-EPOCH in [place] as an inpatient due to the high-risk BCL6 mutation. Of note, he did not have double- hit lymphoma, as he did not have the c-Myc mutation. Thus, I did not believe he required autologous stem cell transplant in the first remission. We utilized a more aggressive regimen after extensive discussion with the patient about the data between R-CHOP versus R-EPOCH. His scans continued to be negative, including a CT scan this month. His last PET scan was negative in August 2017 as well. He has some benign mild gynecomastia related to low testosterone. He has many symptoms that I believe are related to low testosterone, including slightly decreased stamina, although he consistent to be very active. He has noted erectile dysfunction in the past, but we did not discuss that today. He continues to have generalized anxiety disorder and fear that his cancer is coming back; however, he has no symptoms of concern. He has some occasional pain in the right groin, which has been present for many years and is intermittent. He has occasional back pain, but seems to be related to use. He continues to exercise, although he is gaining some weight this year. No other new issues today. PAST MEDICAL HISTORY 1. GERD. 2. Osteoporosis/osteopenia. 3. Colon polyps. 4. Diffuse large B-cell lymphoma. 5. Generalized anxiety disorder. 6. Hernia repair. 7. Rectal surgery. FAMILY HISTORY Mother with colon cancer, and a paternal grandfather with esophageal cancer. He gets colonoscopies every five years and is due for it this year. SOCIAL HISTORY Patient is with no children. He is an artist. He drinks about six beers per week. He and his are [employer]. No drugs of abuse, tobacco or illicit drugs. REVIEW OF SYSTEMS CONSTITUTIONAL: No fevers, chills, night sweats, or weight change, other than some weight gain. HEENT: No headache or vision changes. CARDIOVASCULAR: No chest pain, dyspnea on exertion, or edema. RESPIRATORY: No shortness of breath, wheeze, or cough. GASTROINTESTINAL: No nausea or vomiting. GENITOURINARY: No dysuria or hematuria. MUSCULOSKELETAL: No major joint pain. PSYCHIATRIC: No anxiety or depression. ENDOCRINE: No heat or cold intolerance. SKIN: No concerning rashes or lesions. PSYCHIATRIC: Positive anxiety and fear that his cancer is going to come back. Remainder of 14-point review of systems otherwise negative. PHYSICAL EXAMINATION: VITAL SIGNS: Blood pressure 124/62, pulse 51, respiratory rate 16, temperature 96.9 Fahrenheit, oxygen saturation 94% on room air. Weight 84.2 kg, pain 0/10, fatigue 0/10. GENERAL: Stable condition, resting comfortably in the chair. HEENT: Normocephalic, atraumatic. LYMPHATIC: No appreciable cervical, supraclavicular, axillary, or inguinal adenopathy. ABDOMEN: Soft and nontender. No organomegaly or masses. PSYCHIATRIC: Patient continues to have anxiety and is at his baseline. Remainder of physical exam otherwise unremarkable. IMPRESSION/REPORT/PLAN Mr. Justin is a very pleasant gentleman with the following: Diffuse large B-cell lymphoma with high-risk features. He finished six cycles of R-EPOCH in August 2017. I would like to get imaging in six months with labs, and after that time, we can transition to annually. I answered all of his many questions today. Provided reassurance, as I do not believe that there are any signs of cancer based on his labs and imaging, which we reviewed in detail today. BILLING Return visit level 4. Total time 30 minutes, counseling time 20. MTDD
== END 2018-10-17 13:01 | disposition home or self-care (01) ==
LOC: ONC 11:22
PROVIDERS: ATTEND Internal Medicine
DX: C83.39 Diffuse large B-cell lymphoma, extranodal and solid organ sites (principal); N20.0 Calculus of kidney; N28.1 Cyst of kidney, acquired; Q26.8 Other congenital malformations of great veins; K21.9 Gastro-esophageal reflux disease without esophagitis; F41.9 Anxiety disorder, unspecified; M85.80 Other specified disorders of bone density and structure, unspecified site; Z86.010 Personal history of colon polyps; Z92.21 Personal history of antineoplastic chemotherapy
CPT/HCPCS: 36415; 71270; 74178; 82784; 83615; 85025; G0463; Q9967; 82040; 82247; 82310; 82374; 82435; 82565; 82947; 84075; 84132; 84155; 84295; 84450; 84460; 84520; 99212

== ENCOUNTER 2019-02-20 10:49 | Outpatient (RCR) | payer MEDICARE, BC ==
[2019-02-16 09:26] VITALS: BP 115/71
[2019-02-16 09:39] LABS: PLATELET COUNT, AUTOMATED 146 K/uL (150-450)
--- NOTE | 2019-02-16 11:52 | RADIOLOGY IMAGING REPORT ---
FACILITY: [facility] [place] PATIENT NAME: Noe Justin : 1950 MR: [id number] V: [id number] EXAM DATE: ORDERING PHYSICIAN: JESIKA DONIS TECHNOLOGIST: Location: [facility] Patient: Noe Justin : 1950 Visit/Account:[id number] Date of Sevice: 02/16/2019 CT CHEST ABDOMEN PELVIS W/CON HISTORY: Lymphoma ADDITIONAL HISTORY: None. TECHNIQUE: Following administration of IV contrast axial images acquired through the chest abdomen a nd pelvis during the portal venous phase. Coronal and sagittal reformatting was also performed.Dose Lowering Technique One of the following dose optimization techniques was utilized in the performance of this exam: Autom ated exposure control; adjustment of the mA and/or kV according to the patient's size; or use of an i terative reconstruction technique. Specific details can be referenced in the facility's radiology C T exam operational policy. CONTRAST: 75 mL Isovue-370 COMPARISON: September 14, 2018 FINDINGS: CHEST: Lungs/Pleura: There is mild right apical pleural parenchymal scarring that appears similar to the pr ior study Mediastinum/lymph nodes: Negative. Heart/vessels: Advanced coronary artery calcifications Bones/soft tissues: Again noted are mixed lytic and sclerotic lesions throughout the visualized cerv ical and thoracic spine in a similar pattern to the prior study and may represent healed metastases. Increased soft tissue density in the left retroareolar breast appears stable when compared the prior study, this may represent gynecomastia ABDOMEN AND PELVIS: Hepatobiliary: Tiny hypoattenuating process along the posterior dome of the liver appears stable and is too small to characterize Spleen: Negative. Pancreas: Negative. Adrenals: Negative. Kidneys ureters and bladder : Bilateral renal cysts and bilateral nonobstructing nephrolithiasis agai n seen Genitalia: Again noted are prominent lobular seminal vesicles although appears similar to the prior s tudy. Coarse calcifications are seen within the inhomogeneous prostate gland. Possible bilateral va ricoceles GI: Negative. Vessels/spaces/nodes: High-grade narrowing in the right internal iliac artery again noted. 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 No pathologic appearing lymph nodes are seen Bones/soft tissues: Lytic and sclerotic lesions are again seen throughout the lumbar sacral spine and pelvis similar to t he prior study possibly representing healed metastases Additional findings: None pertinent. 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 Additional chronic findings as described Report Dictated By: Radha Sinclair MD at 02/16/2019 11:08 AM Report E-Signed By: Radha Sinclair MD at 02/16/2019 11:49 AM WSN:[email or web address]
[~2019-02-20 10:49] MED LIST changes: +DEXTROSE 5%(*) 100 ML BAG 100 ML IVPB PRN; -IOPAMIDOL 76% 75 ML INFUS BTL 75 ML ONE; +LIDOCAINE/SOD BICARB 8.4% SYR ID PRN; +NS(*) 0.9% 100 ML BAG 100 ML IVPB PRN
[2019-02-20 10:58] VITALS: BP 114/70
--- NOTE | 2019-02-20 12:20 | [facility] ONCOLOGY NOTE ---
EVENT DATE: February 20, 2019 CHIEF COMPLAINT/REASON FOR VISIT Mr. 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 HISTORY OF PRESENT ILLNESS Scott returns. He received all six cycles of R-EPOCH in [facility] as an inpatient due to the high risk B-cell 6 mutation. Of note, he did not have double hit lymphoma. Thus, I did not believe he required autologous stem cell transplant in first remission. We utilized a much more aggressive regimen after extensive discussion about the pros and cons regarding the data between R-CHOP and R-EPOCH. His scans continue to be negative including this last month. His last negative PET scan was in August 2017. He has some mild benign gynecomastia related to low testosterone and I defer to his primary care provider regarding followup for this. Probably should check approximately once a year along with his thyroid as well. He has had erectile dysfunction in the past and it is difficult to know whether or note the chemotherapy is contributing to that. No issues with high blood pressure, fortunately. He is managing his generalized anxiety disorder quite well. No symptoms of concern. No weight loss, red flag symptoms, concerning lumps or bumps. No fever or chills. Overall, he is doing quite well. I am very pleased with his basic labs as well. PAST MEDICAL HISTORY 1. GERD. 2. Osteoporosis/osteopenia. 3. Colon polyps. 4. Diffuse large B-cell lymphoma. 5. Generalized anxiety disorder. 6. Hernia repair. 7. Rectal surgery. FAMILY HISTORY Mother with colon cancer, and a paternal grandfather with esophageal cancer. He gets colonoscopies every five years and is due for it this year. SOCIAL HISTORY Patient is with no children. He is an artist. He drinks about six beers per week. He and his are Spiritism. No drugs of abuse, tobacco or illicit drugs. REVIEW OF SYSTEMS CONSTITUTIONAL: No fevers, chills, night sweats, or weight change, other than some weight gain. HEENT: No headache or vision changes. CARDIOVASCULAR: No chest pain, dyspnea on exertion, or edema. RESPIRATORY: No shortness of breath, wheeze, or cough. GASTROINTESTINAL: No nausea or vomiting. GENITOURINARY: No dysuria or hematuria. MUSCULOSKELETAL: No major joint pain. PSYCHIATRIC: No anxiety or depression. Much improved compared to previously. ENDOCRINE: No heat or cold intolerance. SKIN: No concerning rashes or lesions. PSYCHIATRIC: Positive anxiety and fear that his cancer is going to come back. Remainder of 14-point review of systems otherwise negative. PHYSICAL EXAMINATION: VITAL SIGNS: Blood pressure 114/70, pulse 60, respiratory rate 16, temperature 96.7 Fahrenheit, oxygen saturation 94% on room air. Weight 84.5 kg, pain 0/10, fatigue 0/10. GENERAL: Stable condition, resting comfortably in the chair. HEENT: Normocephalic, atraumatic. CARDIOVASCULAR: Regular rate and rhythm. LUNGS: Clear to auscultation bilaterally. ABDOMEN: Soft, nontender, nondistended. No organomegaly or masses. LYMPHATIC; No appreciable cervical, supraclavicular or axillary adenopathy. EXTREMITIES: No clubbing, cyanosis or edema. BREASTS: Deferred today. He has had some mild benign gynecomastia in the past. It is improved he feels. Remainder of physical exam otherwise unremarkable. IMPRESSION/REPORT/PLAN Mr. Justin is a pleasant 69- gentleman with the followin. Diffuse large B-cell lymphoma with high-risk features. He finished R-EPOCH in August 2017. Labs every six month. Scans annually. 2. Low testosterone. Followup with primary care provider annually. 3. Osteopenia. Continue to take vitamin D and discussed this again today. Followup with his primary care provider annually. 4. I had an excellent discussion with the patient and his . He is doing excellent in survivorship and we will continue to follow him every six months through year 5. BILLING Return visit level 4. Total time 30 minutes, counseling time 20. MTDD
== END 2019-03-13 15:09 | disposition home or self-care (01) ==
LOC: ONC 10:49
PROVIDERS: ATTEND Internal Medicine
DX: Z85.72 Personal history of non-Hodgkin lymphomas (principal); E29.1 Testicular hypofunction; M85.80 Other specified disorders of bone density and structure, unspecified site; Z79.899 Other long term (current) drug therapy; Z92.21 Personal history of antineoplastic chemotherapy
CPT/HCPCS: 71260; 74177; 82784; 83615; 85025; G0463; Q9967; 82040; 82247; 82310; 82374; 82435; 82565; 82947; 84075; 84132; 84155; 84295; 84450; 84460; 84520; 99212